=== PATIENT | female | born 1960 | race Caucasian/White ===

== ENCOUNTER 2018-10-01 14:33 | Emergency (ER) | payer BC, SELFPAY ==
[2018-10-01] VITALS (8 sets, daily range): BP systolic 119–140; BP diastolic 57–73; PULSE 71–91; RESP 16–22; TEMP 36.7; O2SAT 97–100; BMI 27.2
[2018-10-01 15:07] LABS: Add Manual Diff / Slide Review NO; Basophils Absolute Auto 0 /uL (0-100); Basophils Percent Auto 0.3 % (0-2); Eosinophils Absolute Auto 100 /uL (0-450); Eosinophils Percent Auto 1.1 % (2-4); Hematocrit 42.1 % (36-46); Hemoglobin 14.4 g/dL (12.0-16.0); Lymphocytes Absolute Auto 1700 /uL (1100-4500); Lymphocytes Percent Auto 14.3 % (25-40); Mean Corpuscular HGB Conc 34.2 % (30-36); Mean Corpuscular Hemoglobin 30.8 PG (26-34); Mean Corpuscular Volume 89.8 fL (80-100); Monocytes Absolute Auto 800 /uL (0-900); Monocytes Percent Auto 6.9 % (3-14); Neutrophils Absolute Auto 9200 /uL (1500-7000); Neutrophils Percent Auto 77.4 % (50-75); Platelet Count 241 X10^3/uL (150-400); Red Blood Cell Count 4.69 X10^6/uL (4.0-5.2); Red Cell Distribution Width 13.6 % (11.6-14.8); White Blood Cell Count 11.9 X10^3/uL (4.5-11.0)
[2018-10-01 15:14] LABS: INR 0.9 (0.9-1.3); Prothrombin Time 10.8 SECONDS (10.1-12.7)
[2018-10-01 15:16] LABS: PTT Partial Thromboplastin Tim 32 SECONDS (26.4-36.2)
[2018-10-01 15:18] LABS: Alanine Aminotransferase 46 IU/L (9-52); Albumin 4.5 g/dL (3.5-5.0); Albumin Globulin Ratio 1.4 (1.0-2.8); Alkaline Phosphatase 93 U/L (38-126); Aspartate Aminotransferase 24 IU/L (14-36); BUN Creatinine Ratio 22.7 (6-22); Bilirubin Total 1.2 mg/dL (0.2-1.3); Blood Urea Nitrogen 25 mg/dL (7-17); Carbon Dioxide 25 mmol/L (22-32); Chloride 104 mmol/L (98-107); Estimated Glomerular Filt Rate 50.8 mL/min (>60); Globulin 3.3 g/dL (1.7-4.1); Glucose 104 mg/dL (70-100); HEMOLYSIS < 15 (0-50); Lipase 40 U/L (23-300); Potassium 4.4 mmol/L (3.4-5.1); Sodium 139 mmol/L (137-145); Total Protein 7.8 g/dL (6.3-8.2)
--- NOTE | 2018-10-01 15:22 | DI.US.S_ITS ---
PROCEDURE: US ABDOMEN LIMITED INDICATIONS: RUQ PAIN TECHNIQUE: Real-time scanning was performed of the abdominal and retroperitoneal organs, with image documentation. COMPARISON: None. FINDINGS: Liver: Liver is enlarged and measures 23.1 cm in length. Diffusely increased liver parenchymal echotexture is seen. No discrete hepatic lesion. Gallbladder: Multiple stones are seen in dependent portion of gallbladder lumen. There is no gallbladder wall thickening or pericholecystic fluid. No sonographic Moran's sign. Biliary ducts: Intrahepatic bile ducts are non-dilated. Extrahepatic bile duct caliber measures 5.6 mm. Normal is 6-7 mm or less in diameter, or 10 mm or less post-cholecystectomy. Pancreas: Visualized portions of the pancreas are sonographically normal. Kidneys: Right kidney measures 11.7 cm long. No hydronephrosis or nephrolithiasis. No solid masses. Miscellaneous: No free abdominal fluid. IMPRESSION: 1. Hepatomegaly and hepatic steatosis. No discrete hepatic lesion. 2. Cholelithiasis, no sonographic evidence of acute cholecystitis. No biliary ductal dilatation. Dictated by: Adam Rivera M.D. on 10/01/2018 at 16:26 Approved by: Adam Rivera M.D. on 10/01/2018 at 16:28
--- NOTE | 2018-10-01 15:41 | DI.RAD.S_ITS ---
PROCEDURE: XR ACUTE ABDOMEN SERIES INDICATIONS: n/v/ gallbladder issues TECHNIQUE: One view chest and two views of the abdomen were acquired. COMPARISON: None. FINDINGS: Surgical changes and devices: None. Chest: Lungs are clear. Heart size is normal. No pleural effusions. No pneumoperitoneum. Abdomen: Bowel gas pattern is normal. No suspicious calcifications. Visualized solid organ contours appear normal. Bones: No suspicious bony lesions. IMPRESSION: No acute cardiopulmonary pathology. Dictated by: Adam Rivera M.D. on 10/01/2018 at 16:28 Approved by: Adam Rivera M.D. on 10/01/2018 at 16:30
[2018-10-01 15:52] LABS: Creatine Kinase 99 U/L (30-135)
[2018-10-01 16:05] LABS: Troponin I < 0.012 ng/mL (0.01-0.034)
--- NOTE | 2018-10-01 16:10 | ED.NAVMDI ---
HPI - Nausea/Vomiting/Diarrhea General Chief complaint: Nausea/Vomiting/Diarrhea Stated complaint: nausea and vomiting all night, galbladder issues Time Seen by Provider: 10/01/18 14:58 Source: patient and family ( and daughter) Mode of arrival: ambulatory Limitations: no limitations History of Present Illness HPI Narrative: This is a 58-year-old female who comes to the emergency department with complaint of constant right upper quadrant pain. Patient states in intermittently waxes and wanes in intensity. She also has intermittent symptoms of nausea and vomiting. She states that she has been slightly constipated. She has had hard pebbly stool sometimes with her fibrous. She has been having bowel movements daily. She denies any melena or bright red blood. She denies any urinary symptoms. She states sometimes she has some radiation around to her back but it is usually just in the right upper quadrant sometimes radiates across a little bit. She states she did feel little bit short of breath walking earlier today and in the shower. She states she had to lay down and catch her breath. She denies any chest pain or pressure but does complain of intermittent reflux. Patient states she has no real past medical issues, she states she has had hysterectomy. She states it was an emergent surgery she received transfusions but it was noted that her gallbladder did not look good and patient states that she was told she will probably need out in the future. Denies tobacco, alcohol or illicit. Family history dad of a heart attack and 84 patient states her siblings have some minor medical issues such as asthma and arthritis but no cardiac issues. Related Data Home Medications Medication Instructions Recorded Confirmed Excedrin 1 tab PO PRN PRN 10/01/18 10/01/18 Allergies Allergy/AdvReac Type Severity Reaction Status Date / Time epinephrine Allergy Verified 10/01/18 14:47 Review of Systems Review of Systems ROS Unobtainable: All systems reviewed & are unremarkable except as noted in HPI and below Constitutional Denies chills, Denies fever(s), Denies lethargy and Denies weakness Cardiovascular Denies chest pain, Denies diaphoresis, Denies syncope, Denies lightheadedness, Denies radiating jaw, neck or arm pain, Reports dyspnea and Denies dyspnea on exertion Respiratory Denies change in phlegm color, Denies chest congestion, Denies cough, Reports dyspnea and Denies dyspnea on exertion Gastrointestinal Gastrointestinal: Reports abdominal pain (Right upper quadrant), Denies hematochezia, Denies change in bowel habits, Reports change in stool character, Reports constipation (Bowel movements but hard pebbly stools.), Denies diarrhea, Reports nausea, Reports vomiting and Denies hematemesis Genitourinary Denies hematuria, Denies urinary frequency, Denies dysuria, Denies flank pain, Denies urinary incontinence and Denies urinary urgency Musculoskeletal Denies back pain Integumentary/Breasts Denies rash Neurologic Denies syncope and Denies weakness [facility] Medical History (Updated 10/01/18 @ 17:57 by Jessica Osborn DO) H/O: hysterectomy (Chronic) Social History Smoking Status: Unknown if ever smoked Family History (Updated 10/01/18 @ 16:37 by Jessica Osborn DO) Father Myocardial infarction Social History (Updated 10/01/18 @ 16:37 by Jessica Osborn DO) marital status: Smoking Status: Unknown if ever smoked substance use type: does not use Exam Narrative Exam Narrative: GENERAL: Alert and oriented x three, well-nourished, well-appearing female in mild distress. HEENT: Head normocephalic, atraumatic, EOMI, pupils reactive, face symmetric, moist mucous membranes NECK: Supple, full range of motion CARDIOVASCULAR: Regular rate and rhythm with systolic ejection murmurs, rubs or gallops. No JVD. No swelling in her extremities. RESPIRATORY: Breath sounds equal bilaterally, no wheezes rales or rhonchi. ABDOMEN: Soft, positive for right upper quadrant tenderness. Normoactive bowel sounds all 4 quadrants. No guarding or rebound, rigidity, no mass : No CVA tenderness EXTREMITIES: Normal range of motion, no clubbing or edema. Neurovascularly intact NEUROLOGICAL: Cranial nerves II through XII grossly intact. Moving all extremities SKIN: Warm, dry, no petechiae, no rashes or lesions. Initial Vital Signs Initial Vital Signs: Vital Signs Temperature 98.1 F 10/01/18 14:47 Pulse Rate 91 H 10/01/18 14:47 Respiratory Rate 16 10/01/18 14:47 Blood Pressure 135/65 10/01/18 14:47 Pulse Oximetry 99 10/01/18 14:47 Scores HEART Score Heart Score history: Slightly Suspicious Heart Score EKG: Non-Specific repolarization disturbance Heart Score Age: 45-64 years old Heart Score risk factors: No known risk factors Heart Score troponin: < or = to normal limit Heart Score Total: 2 Course Orders Ordered: ED Orders 10/01/18 14:53 Complete Blood Count AUTO DIFF Stat Comprehensive Metabolic Panel Stat Lipase Stat Partial Thromboplastin Time Stat Prothrombin Time INR Stat Troponin & CK Cardiac Panel Stat 10/01/18 15:22 US abdomen limited Stat 10/01/18 15:32 EKG-12 Lead Stat 10/01/18 15:41 XR acute abdomen series Stat 10/01/18 15:42 EKG-12 Lead Stat 10/01/18 16:06 EKG-12 Lead Stat 10/01/18 16:32 CT angio chest abdomen pelvis Stat Discontinued Medications Aspirin (Aspirin Chew) 324 mg PO NOW ONE Stop: 10/01/18 17:57 Last Admin: 10/01/18 18:01 Dose: 324 mg Sodium Chloride (Normal Saline 0.9%) 1,000 mls @ 1,000 mls/hr IV BOLUS ONE Stop: 10/01/18 17:31 Last Infusion: 10/01/18 18:16 Dose: 0 mls/hr Admin: 10/01/18 16:57 Dose: 1,000 mls/hr Ketorolac Tromethamine (Toradol) 15 mg IV NOW ONE Stop: 10/01/18 16:33 Last Admin: 10/01/18 16:56 Dose: 15 mg Ondansetron HCl (Zofran) 4 mg IV NOW ONE Stop: 10/01/18 16:33 Last Admin: 10/01/18 16:56 Dose: 4 mg Vital Signs - 8 hr 10/01/18 14:47 Temperature 98.1 F Pulse Rate 91 H Respiratory Rate 16 Blood Pressure 135/65 Pulse Oximetry 99 MDM - Nausea/Vomiting/Diarrhea Lab Data Attestation: I reviewed the patient's lab results. Result diagrams: 10/01/18 14:53 10/01/18 14:53 Lab Results 10/01/18 10/01/18 10/01/18 Range/Units 14:53 14:53 14:53 WBC 11.9 H (4.5-11.0) X10^3/uL RBC 4.69 (4.0-5.2) X10^6/uL Hgb 14.4 (12.0-16.0) g/dL Hct 42.1 (36-46) % MCV 89.8 (80-100) fL MCH 30.8 (26-34) PG MCHC 34.2 (30-36) % RDW 13.6 (11.6-14.8) % Plt Count 241 (150-400) X10^3/uL Neut % (Auto) 77.4 H (50-75) % Lymph % (Auto) 14.3 L (25-40) % [place] % (Auto) 6.9 (3-14) % Eos % (Auto) 1.1 L (2-4) % Baso % (Auto) 0.3 (0-2) % Neut # (Auto) 9200 H (9292-7149) /uL Lymph # (Auto) 1700 (2681-2900) /uL [place] # (Auto) 800 (0-900) /uL Eos # (Auto) 100 (0-450) /uL Baso # (Auto) 0 (0-100) /uL PT 10.8 (10.1-12.7) SECONDS INR 0.9 (0.9-1.3) APTT 32 (26.4-36.2) SECONDS Sodium 139 (137-145) mmol/L Potassium 4.4 (3.4-5.1) mmol/L Chloride 104 (98-107) mmol/L Carbon Dioxide 25 (22-32) mmol/L BUN 25 H (7-17) mg/dL Creatinine 1.10 H (0.52-1.04) mg/dL Estimated GFR 50.8 L (>60) mL/min BUN/Creatinine Ratio 22.7 H (6-22) Glucose 104 H (70-100) mg/dL Calcium 10.0 (8.4-10.2) mg/dL Total Bilirubin 1.2 (0.2-1.3) mg/dL AST 24 (14-36) IU/L ALT 46 (9-52) IU/L Alkaline Phosphatase 93 (38-126) U/L Total Creatine Kinase (30-135) U/L CK-MB (CK-2) CK-MB (CK-2) Rel Index Troponin I (0.01-0.034) ng/mL Total Protein 7.8 (6.3-8.2) g/dL Albumin 4.5 (3.5-5.0) g/dL Globulin 3.3 (1.7-4.1) g/dL Albumin/Globulin Ratio 1.4 (1.0-2.8) Lipase 40 (23-300) U/L // Range/Units 14:53 WBC (4.5-11.0) X10^3/uL RBC (4.0-5.2) X10^6/uL Hgb (12.0-16.0) g/dL Hct (36-46) % MCV (80-100) fL MCH (26-34) PG MCHC (30-36) % RDW (11.6-14.8) % Plt Count (150-400) X10^3/uL Neut % (Auto) (50-75) % Lymph % (Auto) (25-40) % [place] % (Auto) (3-14) % Eos % (Auto) (2-4) % Baso % (Auto) (0-2) % Neut # (Auto) (1085-7367) /uL Lymph # (Auto) (8599-9964) /uL [place] # (Auto) (0-900) /uL Eos # (Auto) (0-450) /uL Baso # (Auto) (0-100) /uL PT (10.1-12.7) SECONDS INR (0.9-1.3) APTT (26.4-36.2) SECONDS Sodium (137-145) mmol/L Potassium (3.4-5.1) mmol/L Chloride (98-107) mmol/L Carbon Dioxide (22-32) mmol/L BUN (7-17) mg/dL Creatinine (0.52-1.04) mg/dL Estimated GFR (>60) mL/min BUN/Creatinine Ratio (6-22) Glucose (70-100) mg/dL Calcium (8.4-10.2) mg/dL Total Bilirubin (0.2-1.3) mg/dL AST (14-36) IU/L ALT (9-52) IU/L Alkaline Phosphatase (38-126) U/L Total Creatine Kinase 99 (30-135) U/L CK-MB (CK-2) TNP CK-MB (CK-2) Rel Index TNP Troponin I < 0.012 (0.01-0.034) ng/mL Total Protein (6.3-8.2) g/dL Albumin (3.5-5.0) g/dL Globulin (1.7-4.1) g/dL Albumin/Globulin Ratio (1.0-2.8) Lipase (23-300) U/L Urine Dip Bedside Urine Glucose Negative Bedside Urine Bilirubin - Negative Bedside Urine Ketone - Negative Urine Specific [place] 1.015 Bedside Urine Occult Blood - Negative Bedside Urine pH 5.5 Bedside Urine Protein - Negative Bedside Urine Urobilinogen - Negative Bedside Urine Nitrite - Negative Bedside Urine Leukocytes - Negative Esterase Imaging Data Acute abdominal series: Radiologist's impression: [address] [address] XRay Report Signed Patient: Marquita AaronR#: [id number] : 1960Acct:[id number] Age/Sex: 58 / FDate of Service: 10/01/18 Loc: ED Accession Number: [id number] Procedure: XR acute abdomen series Ordering Provider: Jessica Osborn D.O. PROCEDURE: XR ACUTE ABDOMEN SERIES INDICATIONS: n/v/ gallbladder issues TECHNIQUE: One view chest and two views of the abdomen were acquired. COMPARISON: None. FINDINGS: Surgical changes and devices: None. Chest: Lungs are clear. Heart size is normal. No pleural effusions. No pneumoperitoneum. Abdomen: Bowel gas pattern is normal. No suspicious calcifications. Visualized solid organ contours appear normal. Bones: No suspicious bony lesions. IMPRESSION: No acute cardiopulmonary pathology. Dictated by: Adam Rivera M.D. on 10/01/2018 at 16:28 Approved by: Adam Rivera M.D. on 10/01/2018 at 16:30 Abdominal ultrasound: Radiologist's impression: Tori Aaron 58 F [address] [address] Ultrasound Report Signed Patient: Jose Luis Aaron#: [id number] : 1960Acct:[id number] Age/Sex: 58 / FDate of Service: 10/01/18 Loc: ED Accession Number: [id number] Procedure: US abdomen limited Ordering Provider: Jessica PinedaP-BC PROCEDURE: US ABDOMEN LIMITED INDICATIONS: RUQ PAIN TECHNIQUE: Real-time scanning was performed of the abdominal and retroperitoneal organs, with image documentation. COMPARISON: None. FINDINGS: Liver: Liver is enlarged and measures 23.1 cm in length. Diffusely increased liver parenchymal echotexture is seen. No discrete hepatic lesion. Gallbladder: Multiple stones are seen in dependent portion of gallbladder lumen. There is no gallbladder wall thickening or pericholecystic fluid. No sonographic Moran's sign. Biliary ducts: Intrahepatic bile ducts are non-dilated. Extrahepatic bile duct caliber measures 5.6 mm. Normal is 6-7 mm or less in diameter, or 10 mm or less post-cholecystectomy. Pancreas: Visualized portions of the pancreas are sonographically normal. Kidneys: Right kidney measures 11.7 cm long. No hydronephrosis or nephrolithiasis. No solid masses. Miscellaneous: No free abdominal fluid. IMPRESSION: 1. Hepatomegaly and hepatic steatosis. No discrete hepatic lesion. 2. Cholelithiasis, no sonographic evidence of acute cholecystitis. No biliary ductal dilatation. Dictated by: Adam Rivera M.D. on 10/01/2018 at 16:26 Approved by: Adam Rivera M.D. on 10/01/2018 at 16:28 CTA chest/abd/pelvis: Radiologist's impression: Tori Aaron 58 F 1960 [place] [address] CT Scan Report Signed Patient: Jose Luis Aaron#: [id number] : 1960Acct:[id number] Age/Sex: 58 / FDate of Service: 10/01/18 Loc: ED Accession Number: [id number] Procedure: CT angio chest abdomen pelvis Ordering Provider: Jessica Osborn D.O. PROCEDURE: CT ANGIO CHEST ABDOMEN PELVIS INDICATIONS: pe vs cholelithiasis vs other TECHNIQUE: Precontrast 5 mm thick sections acquired from the lung apices to the iliac crests. After the administration of intravenous contrast, 2.5 mm thick sections again acquired from the lung apices to the iliac crests. Maximum intensity projection (MIP) oblique sagittal and coronal reformats were then acquired. For radiation dose reduction, the following was used: automated exposure control. COMPARISON: None. FINDINGS: Image quality: Excellent. AORTA: No visualized hemodynamically significant stenosis or vascular occlusion. There is a focus of linear filling defect within the infrarenal abdominal aorta seen on series 4 image 126. No corresponding abnormality is identified on coronal or sagittal views. In addition, this appears to connect with small lumbar vessel. CHEST: Lungs and pleura: No acute airspace opacities. No pleural effusions or pneumothorax. Central and peripheral airways are patent and normal in caliber. Mediastinum: Heart size is normal. No pericardial effusion. No mediastinal or hilar adenopathy by size criteria. Central pulmonary arteries are normal in size. Esophagus is normal in caliber. No hiatal hernias. Bones and chest wall: No axillary adenopathy by size criteria. Thyroid gland is unremarkable. No suspicious bony lesions. No vertebral body compression fractures. ABDOMEN: Vasculature: Celiac trunk and mesenteric arteries are patent. Renal arteries are also patent. Solid organs: Liver is normal in size and enhancement. Gallbladder demonstrates multiple stones without wall thickening.. Biliary system is non dilated. Pancreas enhances normally. Spleen is normal in size and enhancement. No adrenal nodules. Both kidneys are normal in size and enhancement, without hydronephrosis. Right renal cyst is present. Peritoneum and bowel: No free fluid or air. Bowel loops are normal in caliber and wall thickness. Moderate stool. Nodes and vessels: No retroperitoneal or mesenteric adenopathy by size criteria. Inferior vena cava is normal in morphology. Miscellaneous: Fat-containing ventral hernia is noted. PELVIS: Genitourinary: Bladder wall thickness is normal. Miscellaneous: No inguinal hernias or adenopathy. No ventral hernias. Bones: No suspicious bony lesions. No vertebral body compression fractures. IMPRESSION: 1. Cholelithiasis without imaging evidence of cholecystitis. 2. Focal area linear filling defect within the infrarenal abdominal aorta. This is only identified on axial images. While dissection cannot be definitively excluded, this appears to correlate to an artifact from an adjacent lumbar vessel. Recommend correlation with patient's symptoms and short interval imaging followup as indicated. 3. Significant stool consistent with constipation. Dictated by: Abimbola Phelan M.D. on 10/01/2018 at 17:02 Approved by: Abimbola Phelan M.D. on 10/01/2018 at 17:08 ECG Data Attestation: I personally reviewed and interpreted this ECG as follows: Prior ECG tracings: not available for review Interpretation: Sinus rhythm rate of 74, P are 169 QRS of 105 and QTC of 427. The patient appears to have left ventricular hypertrophy, patient has some upsloping waves in 1 to in aVL. Also noticed in AVF. No depression. EKG 2. Shows sinus rhythm rate of 90 P are 167 QRS of 106 and QTC of 427. Patient appears to have LVH. Patient's does not appear to have any as she elevation. I do not have any prior EKGs for comparison. MDM Narrative Medical decision making narrative: Spoke with Dr. Valiente, from a surgical standpoint he states patient would benefit from having her gallbladder out but it is more of an urgent not enter emergent situation. She does not appear to have any coli cystitis. She does have gallstones on exam. White count is in the 11 range, she has been afebrile. She is tender to touch but her ultrasound does not show any pericholecystic fluid or stranding. Her LFTs are normal. Spoke with Dr. kendall who is on for the hospitalist service. Patient has an a systolic ejection murmur which she states she has never been told she has, she has LVH on EKG which was repeated x2. Troponin is negative. Elevated 1.1 with a BUN of 25. Order a CTA of the chest abdomen and pelvis as patient has this right upper abdominal pain with sometimes reflux a type pain radiating towards her back. There is cholelithiasis without evidence of cholecystitis. No acute changes to vascular tear are noted, there is a small focal area of linear defect in the infrarenal abdominal aorta it is only identified on axial images and suspected to be artifact. There is a fat containing ventral hernia. Her pain is described as right upper quadrant but occasionally she has reflux like symptoms which could potentially be a cardiac equivalent. Discussed with the patient that I would recommend that she have stress testing and ECHO and surgery definitely prefers to have that before any surgical intervention. We do not have any stress testing available here so plan for transfer. I spoke with Dr. Wray from [facility] who accepts for transfer. Discussed imaging findings, labs findings, and physicial exam findings. Patient is also agreeable. Pain resolved with Toradol, she was given asa 324mg. Discharge Plan Departure Patient Disposition: [facility] Clinical Impression: Atypical chest pain, Cholelithiasis, Systolic ejection murmur Prescriptions: No Action Excedrin 1 tab PO PRN PRN (Reason: Headache) RF: 0 Referrals: Randa Nesbitt PA-C [Primary Care Provider] -
--- NOTE | 2018-10-01 16:32 | DI.CT.S_ITS ---
PROCEDURE: CT ANGIO CHEST ABDOMEN PELVIS INDICATIONS: pe vs cholelithiasis vs other TECHNIQUE: Precontrast 5 mm thick sections acquired from the lung apices to the iliac crests. After the administration of intravenous contrast, 2.5 mm thick sections again acquired from the lung apices to the iliac crests. Maximum intensity projection (MIP) oblique sagittal and coronal reformats were then acquired. For radiation dose reduction, the following was used: automated exposure control. COMPARISON: None. FINDINGS: Image quality: Excellent. AORTA: No visualized hemodynamically significant stenosis or vascular occlusion. There is a focus of linear filling defect within the infrarenal abdominal aorta seen on series 4 image 126. No corresponding abnormality is identified on coronal or sagittal views. In addition, this appears to connect with small lumbar vessel. CHEST: Lungs and pleura: No acute airspace opacities. No pleural effusions or pneumothorax. Central and peripheral airways are patent and normal in caliber. Mediastinum: Heart size is normal. No pericardial effusion. No mediastinal or hilar adenopathy by size criteria. Central pulmonary arteries are normal in size. Esophagus is normal in caliber. No hiatal hernias. Bones and chest wall: No axillary adenopathy by size criteria. Thyroid gland is unremarkable. No suspicious bony lesions. No vertebral body compression fractures. ABDOMEN: Vasculature: Celiac trunk and mesenteric arteries are patent. Renal arteries are also patent. Solid organs: Liver is normal in size and enhancement. Gallbladder demonstrates multiple stones without wall thickening.. Biliary system is non dilated. Pancreas enhances normally. Spleen is normal in size and enhancement. No adrenal nodules. Both kidneys are normal in size and enhancement, without hydronephrosis. Right renal cyst is present. Peritoneum and bowel: No free fluid or air. Bowel loops are normal in caliber and wall thickness. Moderate stool. Nodes and vessels: No retroperitoneal or mesenteric adenopathy by size criteria. Inferior vena cava is normal in morphology. Miscellaneous: Fat-containing ventral hernia is noted. PELVIS: Genitourinary: Bladder wall thickness is normal. Miscellaneous: No inguinal hernias or adenopathy. No ventral hernias. Bones: No suspicious bony lesions. No vertebral body compression fractures. IMPRESSION: 1. Cholelithiasis without imaging evidence of cholecystitis. 2. Focal area linear filling defect within the infrarenal abdominal aorta. This is only identified on axial images. While dissection cannot be definitively excluded, this appears to correlate to an artifact from an adjacent lumbar vessel. Recommend correlation with patient's symptoms and short interval imaging followup as indicated. 3. Significant stool consistent with constipation. Dictated by: Abimbola Phelan M.D. on 10/01/2018 at 17:02 Approved by: Abimbola Phelan M.D. on 10/01/2018 at 17:08
[2018-10-01] MEDS: ONDANSETRON 4 MG/2 ML INJ IV (16:56)
[2018-10-01] MEDS: KETOROLAC 60 MG/2 ML VIAL 15 MG IV (16:56)
[2018-10-01] MEDS: SODIUM CHLORIDE 0.9% 1,000 ML 1000 ML IV (16:57)
--- NOTE | 2018-10-01 17:34 | PC.NURSE ---
pt has murmur noted, ask pt if she had a murmur and she doesn't think that she did. notified dr. zimmer.
[2018-10-01] MEDS: ASPIRIN 81 MG TAB 324 MG PO (18:01)
[2018-10-01] MEDS: MAG HYDROX/ALUM/SIMETH 30 ML UDC PO (19:34)
--- NOTE | 2018-10-01 20:09 | PC.NURSE ---
provided pt water and crackers.
== END 2018-10-02 00:40 | disposition short-term general hospital (02) ==
PROVIDERS: Emergency Provider Emergency Medicine; PCP Physician Assistant Medical
DX: R07.89 Other chest pain (principal); K80.20 Calculus of gallbladder without cholecystitis without obstruction; R01.1 Cardiac murmur, unspecified
CPT/HCPCS: 36591; 71275; 74022; 74174; 76705; 80053; 81003; 82550; 83690; 84484; 85025; 85610; 85730; 93005; 96361; 96374; 96375; 99283; 99285; J1885; J2405; Q9967